=== PATIENT | female | born 1985 | race Caucasian/White ===

== ENCOUNTER 2016-03-15 10:30 | Outpatient (RCR) | payer BC ==
[2012-02-19 23:28] VITALS: BP 122/71
[~2016-03-15 10:30] MED LIST: ALBUTEROL2.5 MG/3 M IH; AMOXICILLIN 8751 TAB PO; DOXYCYCLINE 10100 MG PO; FLONASE NASAL S16 GM NS; NEBULIZER AEROS1 DEV; ORTHO TRI-CYCLE1 TA1; PHENERGAN W/CO120 M1 PO; PREDNISONE10 MG PO; RT ADVAIR 228 DISKUS IH; SINGULAIR PO; VENTOLIN0.09 MG IH; ZYRTEC10 MG
== END 2016-06-13 | disposition home or self-care (01) ==
LOC: PT
DX: M75.21 Bicipital tendinitis, right shoulder (principal)

== ENCOUNTER → 2016-09-20 | Outpatient (CLI) | payer BC ==
[2012-02-19 23:28] VITALS: BP 122/71
== END ==
LOC: PT 11:49
DX: M25.811 Other specified joint disorders, right shoulder (principal)

== ENCOUNTER 2016-11-30 16:00 | Outpatient (RCR) | payer BC ==
[2012-02-19 23:28] VITALS: BP 122/71
== END 2017-01-02 | disposition home or self-care (01) ==
LOC: PT
DX: Z47.89 Encounter for other orthopedic aftercare (principal); M75.21 Bicipital tendinitis, right shoulder

== ENCOUNTER → 2018-05-08 | Outpatient (CLI) | payer BC ==
[2012-02-19 23:28] VITALS: BP 122/71
== END ==
LOC: RAD 18:05
DX: M25.512 Pain in left shoulder (principal)

== ENCOUNTER → 2018-07-02 | Outpatient (CLI) | payer BC ==
[2012-02-19 23:28] VITALS: BP 122/71
[2018-07-02 14:40] LABS: EOS # 0.2 (0.04-0.40); EOS % 2.4 % (1.0-5.0); HEMATOCRIT 45.2 % (37.0-47.0); HEMOGLOBIN 14.6 g/dL (12.5-16.0); MEAN CELL VOLUME 93 fl (78-100); MEAN CORPUSCULAR HEMOGLOBIN 30 pg (27-31); MEAN CORPUSCULAR HGB CONC 32 g/dL (33-37); MEAN PLATELET VOLUME 8.8 fl (7.4-10.4); MONO # 0.9 (0.20-0.80); NEU # 5.2 (1.40-6.50); PLATELET COUNT 389 K/mm3 (130-400); RED BLOOD COUNT 4.86 M/mm3 (4.10-5.30); RED CELL DISTRIBUTION WIDTH 13.9 % (11.5-14.5); WHITE BLOOD COUNT 8.3 K/mm3 (4.8-10.8)
[2018-07-02 14:52] LABS: ALBUMIN 4.5 g/dL (3.5-5.0); CALCIUM 9.6 mg/dL (8.4-10.2); TOTAL BILIRUBIN 0.5 mg/dL (0.2-1.3); TOTAL PROTEIN 7.6 g/dL (6.3-8.2)
== END ==
LOC: LAB 14:26
PROVIDERS: Physician Assistant
DX: I10 Essential (primary) hypertension (principal); E66.8 Other obesity; J45.909 Unspecified asthma, uncomplicated

== ENCOUNTER 2018-08-13 00:45 | Emergency (ER) | payer BC ==
[~2018-08-13] VITALS: Ht 154.9 cm; Wt 99.1 kg
[2018-08-13] MEDS ORDERED: LOSARTAN POTASS25 MG PO (01:07)
[2018-08-13 01:41] LABS: EOS # 0.3 (0.04-0.40); EOS % 2.2 % (1.0-5.0); HEMATOCRIT 44.2 % (37.0-47.0); HEMOGLOBIN 14.4 g/dL (12.5-16.0); LYMPH# 2.9 (1.50-4.00); MEAN CELL VOLUME 92 fl (78-100); MEAN CORPUSCULAR HEMOGLOBIN 30 pg (27-31); MEAN CORPUSCULAR HGB CONC 33 g/dL (33-37); MEAN PLATELET VOLUME 8.7 fl (7.4-10.4); MONO # 0.9 (0.20-0.80); NEU # 7.5 (1.40-6.50); PLATELET COUNT 362 K/mm3 (130-400); RED BLOOD COUNT 4.82 M/mm3 (4.10-5.30); RED CELL DISTRIBUTION WIDTH 14.4 % (11.5-14.5); WHITE BLOOD COUNT 11.7 K/mm3 (4.8-10.8)
[2018-08-13] MEDS ORDERED: CEPHALEXIN500 M1 PO (06:54)
[2018-08-13] MEDS ORDERED: PREDNISONE20 MG PO (06:54)
[2018-08-13] MEDS ORDERED: HYDROXYZINE HCL25 M1 PO (06:54)
[2018-08-13 07:01] VITALS: BP 158/93
== END 2018-08-13 07:01 | disposition home or self-care (01) ==
LOC: ED 00:45
PROVIDERS: Nurse Practitioner
DX: S30.860A Insect bite (nonvenomous) of lower back and pelvis, initial encounter (principal); R21 Rash and other nonspecific skin eruption; F17.210 Nicotine dependence, cigarettes, uncomplicated; W57.XXXA Bitten or stung by nonvenomous insect and other nonvenomous arthropods, initial encounter; Z88.0 Allergy status to penicillin
CPT/HCPCS: A4216; J0696; J1200; J2930; J3490; Q0177

== ENCOUNTER → 2020-03-25 | Outpatient (CLI) | payer BC ==
[~2020-03-25] MED LIST changes: +CEPHALEXIN500 M1 PO; +HYDROXYZINE HCL25 M1 PO; +LOSARTAN POTASS25 MG PO; +PREDNISONE20 MG PO
== END ==
LOC: LAB 15:58
DX: J02.9 Acute pharyngitis, unspecified (principal); Z20.828 Contact with and (suspected) exposure to other viral communicable diseases

== ENCOUNTER → 2020-04-16 | Outpatient (CLI) | payer BC | LOC: RAD 09:32 | DX: S99.922D Unspecified injury of left foot, subsequent encounter (principal) ==

== ENCOUNTER → 2020-04-21 | Outpatient (REF) | LOC: LAB 14:54 | DX: Z02.89 Encounter for other administrative examinations (principal) ==

== ENCOUNTER → 2021-01-13 | Outpatient (CLI) | payer BC | LOC: RAD 16:10 | DX: M25.571 Pain in right ankle and joints of right foot (principal) ==

== ENCOUNTER 2022-01-04 08:00 | Outpatient (RCR) | payer BC | END 2022-02-01 | disposition home or self-care (01) | LOC: PT | DX: S89.92XD Unspecified injury of left lower leg, subsequent encounter (principal); X58.XXXD Exposure to other specified factors, subsequent encounter ==

== ENCOUNTER → 2022-01-25 | Outpatient (CLI) | payer BC ==
[2022-01-25 17:27] LABS: BASO # 0.02 K/mm3 (0.02-0.10); EOS # 0.23 K/mm3 (0.04-0.40); HEMOGLOBIN 15.1 g/dL (12.5-16.0); LYMPH# 3.17 K/mm3 (1.50-4.00); MEAN CELL VOLUME 97 fl (78-100); MEAN CORPUSCULAR HEMOGLOBIN 32 pg (27-31); MEAN CORPUSCULAR HGB CONC 33 g/dL (33-37); MEAN PLATELET VOLUME 8.8 fl (7.4-10.4); MONO # 1.11 K/mm3 (0.20-0.80); PLATELET COUNT 330 K/mm3 (130-400); RED BLOOD COUNT 4.75 M/mm3 (4.10-5.30); RED CELL DISTRIBUTION WIDTH 12.6 % (11.5-14.5); WHITE BLOOD COUNT 11.3 K/mm3 (4.8-10.8)
[2022-01-25 17:41] LABS: ALBUMIN 4.3 g/dL (3.5-5.0); POTASSIUM 3.8 mmol/L (3.5-5.1)
[2022-01-25 17:42] LABS: CALCIUM 9.8 mg/dL (8.3-10.5)
[2022-01-25 17:43] LABS: TOTAL PROTEIN 7.5 g/dL (6.4-8.3)
[2022-01-25 17:46] LABS: PARTIAL THROMBOPLASTIN TIME 21.3 SECONDS (21.0-32.0); PROTHROMBIN TIME 9.3 SECONDS (9.0-12.0)
[2022-01-25 18:45] LABS: TOTAL BILIRUBIN 0.3 mg/dL (0.2-1.2)
== END ==
LOC: RAD 16:46
PROVIDERS: Physician Assistant
DX: Z01.812 Encounter for preprocedural laboratory examination (principal); Z13.29 Encounter for screening for other suspected endocrine disorder; Z13.1 Encounter for screening for diabetes mellitus; Z13.220 Encounter for screening for lipoid disorders; J45.909 Unspecified asthma, uncomplicated; I10 Essential (primary) hypertension; Z72.0 Tobacco use